=== PATIENT | female | born 1965 | race Caucasian/White ===

== ENCOUNTER 2016-11-11 14:20 | Emergency (ER) | payer OTHER ==
--- NOTE | ~2016-11-11 | CR286 ---
[facility] A Service [facility] RADIOLOGY TEXT RESULTS PATIENT: SHAQ DIAZ LOCATION: SED : [birth year] UNIT #: [id number] AGE: [address]: Jacob Landon MD SEX: F ORDER DR: [id number] [place] [id number] E MR#: [id number] Acc #: [id number] NAME: SHAQ DIAZ : 1965 SEX: F STUDY DATE/TIME: 11/11/2016 15:00 UNIT: SED ROOM: STUDY DESCRIPTION: CR Wrist W Navicular Min 3 Rt Attending Physician: Jacob Landon M.D. Ordering Physician: Jacob Landon M.D. Primary Care Physician: Kevon Ryder A.P.R.N. MEDICAL IMAGING REPORT This report is preliminary unless electronic signature is present. EXAM Right wrist, 4 views COMPARISON 3 views of the right hand on the same date. INDICATIONS 51-year-old female with right wrist pain since falling on outstretched hand last night. FINDINGS There is a transverse fracture from the distal radial metaphysis with approximately 5 mm of dorsal displacement. There is anatomic alignment at the wrist. Fracture line appears to extend into the distal radioulnar joint. IMPRESSION Acute transverse fracture through the distal radial metaphysis with extension into the distal radioulnar joint. There is approximately 5 mm of dorsal displacement of the distal fragment. No dislocation. Dictated by... Mati Redd M.D. THIS IS AN ELECTRONICALLY VERIFIED REPORT Mati Redd M.D. at 11/15/2016 8:38 AM CONCHITA/darrin TD: 11/11/2016 17:55 JOB #: [id number] [facility] A Service [facility] RADIOLOGY TEXT RESULTS PATIENT: SHAQ DIAZ LOCATION: SED : [birth year] UNIT #: [id number] AGE: [address]: Jacob Landon MD SEX: F ORDER DR: MEDICAL IMAGING REPORT Page 1 of 1
--- NOTE | ~2016-11-11 | CR142 ---
[facility] A Service of [facility] RADIOLOGY TEXT RESULTS PATIENT: SHAQ DIAZ LOCATION: SED : [birth year] UNIT #: [id number] AGE: [address]: Jacob Landon MD SEX: F ORDER DR: [id number] [place] [id number] E MR#: [id number] Acc #: [id number] NAME: SHAQ DIAZ : 1965 SEX: F STUDY DATE/TIME: 11/11/2016 15:00 UNIT: SED ROOM: STUDY DESCRIPTION: CR Hand Min 3 Views Rt Attending Physician: Jacob Landon M.D. Ordering Physician: Jacob Landon M.D. Primary Care Physician: Kevon Ryder A.P.R.N. MEDICAL IMAGING REPORT This report is preliminary unless electronic signature is present. EXAM Right hand, 3 views COMPARISON 4 views of the right wrist on the same day. INDICATIONS 51-year-old female with right hand pain since falling on outstretched hand last night. FINDINGS There is a transverse fracture through the distal radial metaphysis which extends into the distal radioulnar joint. There is approximately 5 mm of dorsal displacement of the distal fracture fragment. There is no dislocation. Bones are otherwise intact. IMPRESSION 1. Acute transverse fracture through the distal radial metaphysis with extension into the distal radioulnar joint. There is approximately 5 mm of dorsal displacement of the distal fracture fragment. 2. No dislocation. Dictated by... Mati Redd M.D. THIS IS AN ELECTRONICALLY VERIFIED REPORT Mati Redd M.D. at 11/15/2016 8:41 AM CONCHITA/darrin TD: 11/11/2016 18:14 JOB #: [id number] [facility] A Service of [facility] RADIOLOGY TEXT RESULTS PATIENT: SHAQ DIAZ LOCATION: SED : [birth year] UNIT #: [id number] AGE: [address]: Jacob Landon MD SEX: F ORDER DR: MEDICAL IMAGING REPORT Page 1 of 1
[~2016-11-11 14:20] MED LIST: ADVAIR; ALBUTEROL17 G1; ALPRAZOLAM PO; AMITRYPTYLINE PO; ASPIRIN EC81 M1 PO; BACTRIM DS TABL1 TAB PO; CLARITIN10 MG PO; CLINDAMYCIN HC300 MG; CLINDAMYCIN HC300 MG PO; DIAZEPAM PO; EFFEXOR PO; KEFLEX PO; KEFLEX500 MG PO; KETOPROFEN PO; LEVOTHYROXINE112 MCG PO; LEXAPRO5 MG PO; LISINOPRIL20 MG PO; METOPROLOL SUCC50 MG PO; SEROQUEL25 MG PO; SINGULAIR PO
== END 2016-11-11 16:21 | disposition home or self-care (01) ==
LOC: SED 14:20
DX: S52.591A Other fractures of lower end of right radius, initial encounter for closed fracture (principal); S52.201A Unspecified fracture of shaft of right ulna, initial encounter for closed fracture; I10 Essential (primary) hypertension; F17.210 Nicotine dependence, cigarettes, uncomplicated; W19.XXXA Unspecified fall, initial encounter; Y92.009 Unspecified place in unspecified non-institutional (private) residence as the place of occurrence of the external cause
CPT/HCPCS: 29125; 73110; 73130; 90715; 96372; 99283; J1170; J2550